=== PATIENT | female | born 1990 | race Caucasian/White ===

== ENCOUNTER 2019-06-15 10:55 | Emergency (ER) | payer MEDICAID ==
[~2019-06-15] VITALS: Ht 175.3 cm; Wt 59.4 kg
[2019-06-15 11:24] VITALS: BP_SYST 115
--- NOTE | 2019-06-15 12:05 | NUR ---
Patient to ER bed H1 to gown for evaluation. Side rails up. Report given to JENNY VALERIO.
--- NOTE | 2019-06-15 12:10 | NUR ---
ER at bedside examining patient.
--- NOTE | 2019-06-15 12:11 | NUR ---
Pt brought by self, A&Ox4, pt presents to ER with pelvic pain for the last weeks worsening last night , pt has Hx of of vaginitis, denies vaginal bleeding, afebrile. will cont to monitor.
--- NOTE | 2019-06-15 12:12 | NUR ---
PATIENT TAKEN TO CT SCAN AMBULATORY AND ESCORTED BY RADIOLOGY STAFF.
[2019-06-15 12:15] LABS: BILIRUBIN,URINE NEGATIVE (NEGATIVE); BLOOD, URINE NEGATIVE (NEGATIVE); CLARITY/URINE CLEAR (CLEAR); COLOR,URINE YELLOW (YELLOW); GLUCOSE,URINE NEGATIVE (NEGATIVE); KETONES,URINE NEGATIVE (NEGATIVE); LEUKOCYTE ESTERASE ,URINE NEGATIVE (NEGATIVE); NITRITE, URINE NEGATIVE (NEGATIVE); PROTEIN URINE NEGATIVE (NEGATIVE); UROBILINOGEN,URINE 0.2 (0.2-1.0)
[2019-06-15 12:48] LABS: EOSINOPHILS % (AUTO) 0.6 % (0.0-4.0); HEMATOCRIT 39.2 % (36-48); HEMOGLOBIN 13.1 g/dL (12.0-16.0); LYMPHOCYTES # (AUTO) 1.7 K/uL (1.0-5.5); MEAN CORPUSCULAR HEMOGLOBIN 29 pg (27-31); MEAN CORPUSCULAR HGB CONC 33 % (32-36); MEAN CORPUSCULAR VOLUME 87 fL (79.0-98.0); MONOCYTES # (AUTO) 0.3 K/uL (0.0-1.0); MONOCYTES % (AUTO) 7.7 % (1.7-9.3); NEUTROPHILS # (AUTO) 1.7 K/uL (1.8-7.7); NEUTROPHILS % (AUTO) 45.7 % (40.0-70.0); PLATELET COUNT (AUTO) 216 K/uL (130-430); RED BLOOD CELL COUNT(AUTO) 4.51 MIL/uL (4.2-6.2); RED CELL DISTRIBUTION WIDTH 13.3 % (9.0-15.0); WHITE BLOOD COUNT (AUTO) 3.7 K/uL (4.8-10.8)
[2019-06-15 12:57] LABS: CALCIUM 8.8 mg/dL (8.4-11.0); CREATININE 0.47 mg/dL (0.55-1.30); POTASSIUM 4.3 mmol/L (3.5-5.1)
[2019-06-15 12:59] LABS: INR 1.1 (0.8-1.2)
[2019-06-15 13:10] LABS: ALBUMIN 4.2 g/dL (3.4-4.8); TOTAL BILIRUBIN 0.4 mg/dL (0.0-1.0)
[2019-06-15 14:02] VITALS: BP_SYST 115
--- NOTE | 2019-06-15 14:02 | NUR ---
Patient given written and verbal discharge instructions and verbalizes understanding. ER MD discussed with patient the results and treatment provided. Patient in stable condition. ID arm band removed. Rx of Ibuprofen and Dema given. Patient educated on pain management and to follow up with PMD. Pain Scale 2/10 tolerable for patient. Opportunity for questions provided and answered. Medication side effect fact sheet provided.
[2019-06-18 00:09] LABS: CHLAMYDIA TRACHOMATIS NAA Negative (Negative); NEISSERIA GONORRHOEAE NAA Negative (Negative)
== END 2019-06-15 14:02 | disposition home or self-care (01) ==
LOC: SED 10:55
DX: N83.209 Unspecified ovarian cyst, unspecified side (principal); R10.2 Pelvic and perineal pain; Z88.0 Allergy status to penicillin; Z91.018 Allergy to other foods
CPT/HCPCS: 36415; 80053; 81003; 81025; 82150-TC; 83605; 83690-TC; 84703; 85025; 85610-TC; 85730-TC; 87491; 87591; 99284